=== PATIENT | male | born 1955 | race Caucasian/White ===

== ENCOUNTER 2017-05-10 12:41 | Day surgery (SDC) | payer OTHER ==
[~2017-05-10] VITALS: Ht 180.3 cm; Wt 89.6 kg
[~2017-05-10 12:41] MED LIST: Diclofenac Sodi50 MG PO; GABA300 PO; Ibuprofen Ib200 MG PO; OXYC5 PO; Voltaren100 GM TOP
== END 2017-05-10 14:23 | disposition home or self-care (01) ==
LOC: ORSCSDS 12:41
PROVIDERS: Internal Medicine Gastroenterology
PROC: 0DBK8ZX Excision of Ascending Colon, Via Natural or Artificial Opening Endoscopic, Diagnostic (ICD-10-PCS; principal; 2017-05-10 14:00)
DX: Z12.11 Encounter for screening for malignant neoplasm of colon (principal); D12.2 Benign neoplasm of ascending colon; K57.30 Diverticulosis of large intestine without perforation or abscess without bleeding; F17.210 Nicotine dependence, cigarettes, uncomplicated; Z79.899 Other long term (current) drug therapy
CPT/HCPCS: 88305; J7120